=== PATIENT | male | born 1945 | race African-American/Black ===

== ENCOUNTER 2016-07-06 21:59 | Emergency (ER) | payer OTHER ==
[2016-07-06 22:10] VITALS: TEMP 97.4; BMI 22.1
--- NOTE | 2016-07-06 22:21 | PDOC ---
History of Present Illness - General History Source: Patient <Jax Corona - Last Filed: 07/06/16 23:49> - General History Source: Patient, Family Exam Limitations: No Limitations - History of Present Illness Initial Comments: 07/06/16 23:50 The patient is a 71 year old male with significant past medical history of hypertension and thyroid disease who presents to the ED with s/p unwitnessed fall prior to arrival. As per family, at bedside, patient was drinking prior to the fall. Family states pt normally drinks alcohol frequently. Unknown for LOC or head trauma. At time of evaluation, patient does not have any complaints. The patient denies fever, chills, cough, SOB, chest pain, and palpitations. The patient denies abdominal pain, nausea, vomiting, and diarrhea. Allergies: NKDA Social History: etoh abuse. No tobacco or drug use reported. Past Surgical History: None reported PCP: Dr. Daljit Smith <Dominique Garcia - Last Filed: 07/06/16 23:51> - General Chief Complaint: Injury Stated Complaint: FALL Time Seen by Provider: 07/06/16 22:21 Past History - Past Medical History HTN: Yes Thyroid Disease: Yes - Psycho/Social/Smoking Cessation Hx Suicidal Ideation: No Smoking History: Never smoked Have you smoked in the past 12 months: No Information on smoking cessation initiated: No Hx Alcohol Use: No Drug/Substance Use Hx: No <ChloeJax - Last Filed: 07/06/16 23:49> <Dominique Garcia - Last Filed: 07/06/16 23:51> - Past Medical History Home Medications: Ambulatory Orders Amlodipine Besylate [Norvasc -] 10 mg PO DAILY 07/06/16 Aspirin [ASA -] 81 mg PO DAILY 07/06/16 Hydralazine HCl [Apresoline -] 25 mg PO TID 07/06/16 Metoprolol Succinate [Toprol Xl -] 200 mg PO DAILY 07/06/16 Review of Systems - Review of Systems Able to Perform ROS?: Yes Comments:: 07/06/16 23:51 CONSTITUTIONAL: Absent: fever, no chills, no fatigue EYES: Absent: visual changes ENT: Absent: ear pain, no sore throat CARDIOVASCULAR: Absent: chest pain, no palpitations RESPIRATORY: Absent: cough, no SOB GI: Absent: abdominal pain, no nausea, no vomiting, no constipation, no diarrhea GENITOURINARY: Absent: dysuria, no frequency, no hematuria MUSCULOSKELETAL: Absent: back pain, no arthralgia, no myalgia SKIN: Absent: rash NEURO: Absent: headache <[email or web address] - Last Filed: 07/06/16 23:51> *Physical Exam - Vital Signs Last Vital Signs Temp Pulse Resp BP Pulse Ox 97.4 F L 86 20 167/93 100 07/06/16 22:09 07/06/16 22:09 07/06/16 22:09 07/06/16 22:09 07/06/16 22:09 <Jax Corona - Last Filed: 07/06/16 23:49> - Vital Signs Last Vital Signs Temp Pulse Resp BP Pulse Ox 97.4 F L 86 20 167/93 100 07/06/16 22:09 07/06/16 22:09 07/06/16 22:09 07/06/16 22:09 07/06/16 22:09 - Physical Exam Comments: 07/06/16 23:51 GENERAL: Well-appearing, well-nourished. No apparent distress. + AOB HEENT: Normocephalic, atraumatic. No racoon or briceño sign. PERRL, EOM intact. No hemotympanum. CARDIOVASCULAR: Normal S1, S2. Regular rate and rhythm. PULMONARY: Clear to auscultation bilaterally. ABDOMEN: Soft, non-distended, non-tender. EXTREMITIES: Normal ROM in all four extremities. No gross deformities. No bony crepitus. SKIN: Warm, dry. No rash NEUROLOGICAL: Pt is intoxicated, but answering questions appropriately. No focal neurological deficits. <Dominique Garcia - Last Filed: 07/06/16 23:51> Medical Decision Making - Medical Decision Making 07/06/16 23:50 Dr. Corona: The scribe's documentation has been prepared under my direction and personally reviewed by me in its entirery. I confirm that the note above accurately reflects all work, treatment, procedures, and medical decision making performed by me. <Jax Corona - Last Filed: 07/06/16 23:49> *DC/Admit/Observation/Transfer - Discharge Dispostion Admit: No <Jax Corona - Last Filed: 07/06/16 23:49> - Attestations Scribe Attestion: 07/06/16 23:51 Documentation prepared by Dominique Garcia, acting as medical laboratory technical officer for Jax Corona MD <Dominique Garcia - Last Filed: 07/06/16 23:51> Diagnosis at time of Disposition: Fall Qualifiers: Encounter type: initial encounter Qualified Code(s): W19.XXXA - Unspecified fall, initial encounter - Discharge Dispostion Disposition: HOME Condition at time of disposition: Stable - Referrals Referrals: Daljit Smith [Primary Care Provider] - - Patient Instructions Printed Discharge Instructions: How to Prevent Falls
[2016-07-07 00:06] VITALS: BP 159/87; PULSE 82
== END 2016-07-07 00:06 | disposition home or self-care (01) ==
LOC: JER 21:59
DX: F10.10 Alcohol abuse, uncomplicated (principal); I10 Essential (primary) hypertension; E07.9 Disorder of thyroid, unspecified; W19.XXXA Unspecified fall, initial encounter; Y93.9 Activity, unspecified; Y92.038 Other place in apartment as the place of occurrence of the external cause
CPT/HCPCS: 70450-TC; 72125-TC; 99282-25